=== PATIENT | female | born 1950 ===

== ENCOUNTER 2016-12-10 09:02 | Day surgery (SDC) | payer OTHER ==
[2016-12-10 09:37] VITALS: BMI 27.8
[2016-12-10] MEDS ORDERED: Lactated Ringer's 500 ML IV ONE (12:40)
[2016-12-10] MEDS ORDERED: Lactated Ringer's 500 ML IV SCH (13:00)
[2016-12-10 13:48] VITALS: TEMP 98.7
[2016-12-10 14:34] VITALS: BP 125/69; PULSE 81; RESP 16; O2SAT 99
== END 2016-12-10 14:34 | disposition home or self-care (01) ==
LOC: C.ENDO 09:02
PROVIDERS: ATTEND Internal Medicine Gastroenterology
DX: K20.8 Other esophagitis (principal); K29.70 Gastritis, unspecified, without bleeding; K64.8 Other hemorrhoids
CPT/HCPCS: 43239; 45378; 88305; 88312; 88313; 88342; J7120